=== PATIENT | female | born 1965 | race Caucasian/White ===

== ENCOUNTER → 2016-12-04 | Outpatient (REF) | payer OTHER | LOC: M SFHCWAGY 14:17 | PROVIDERS: ATTEND Nurse Practitioner Women's Health | DX: Z12.4 Encounter for screening for malignant neoplasm of cervix (principal) ==

== ENCOUNTER → 2016-12-04 | Outpatient (CLI) | payer OTHER ==
--- NOTE | 2016-12-04 15:02 | REPMRS ---
Patient History The patient states she had a clinical breast exam in 11/2016. Patient is postmenopausal. Family history of breast cancer in mother at age 38, breast cancer in 3 maternal aunts at age 50 or over, and breast cancer in maternal grandmother at age 50 or over. Benign stereotatic breast biopsy of the right breast, 2002. Reductions of both breasts, 1989. Digital Woman Screen Mammo: December 04, 2016 - Exam #: [id number] Bilateral CC and MLO view(s) were taken. Technologist: Jennifer Estes, Technologist Prior study comparison: August 29, 2015, digital woman screen mammo performed at [facility]. January 07, 2012, digital woman screen mammo performed at [facility]. FINDINGS: The breast tissue is heterogeneously dense. This may lower the sensitivity of mammography. There has been no change in the appearance of the mammogram from the prior studies. There is a moderate amount of residual fibroglandular tissue which is fairly symmetric. There is no interval development of dominant mass, areas of architectural distortion, or clustered microcalcification typical of malignancy. ASSESSMENT: BI-RADS/ACR category 1 mammogram. Negative. Recommendation Routine screening mammogram in 1 year (for women over age 40). This mammogram was interpreted with the aid of an FDA-approved computer-aided dectection system. Electronically Signed By: Franc Bermudez MD 12/04/16 5602
== END ==
LOC: M WHC 14:08
PROVIDERS: ATTEND Nurse Practitioner Women's Health
DX: Z12.31 Encounter for screening mammogram for malignant neoplasm of breast (principal)

== ENCOUNTER → 2018-01-12 | Outpatient (REF) | payer BC, OTHER | LOC: M SFHCWAGY 13:31 | DX: N95.0 Postmenopausal bleeding (principal); R93.8 Abnormal findings on diagnostic imaging of other specified body structures | CPT/HCPCS: 88304 ==

== ENCOUNTER → 2018-09-06 | Outpatient (CLI) | payer BC ==
--- NOTE | 2018-09-06 14:52 | REPMRS ---
Patient History The patient states she had a clinical breast exam in 08/2018. Patient is postmenopausal. Family history of breast cancer at age 38 in mother, breast cancer at age 50 or over in maternal grandmother, breast cancer at age 50 or over in maternal aunt, breast cancer under age 50 in maternal aunt, breast cancer at age 50 or over in maternal aunt. Benign stereotatic breast biopsy of the right breast, 2002. Reductions of both breasts, 1989. Taking estrogen for 1 year. 3D TOMOSYNTHESIS WAS PERFORMED. Digital Woman Screen Mammo: September 06, 2018 - Exam #: [id number] Bilateral CC and MLO view(s) were taken. Technologist: Moon Colindres, Technologist Prior study comparison: December 04, 2016, digital woman screen mammo performed at [facility]. August 29, 2015, digital woman screen mammo performed at [facility]. FINDINGS: The breast tissue is heterogeneously dense. This may lower the sensitivity of mammography. There has been no change in the appearance of the mammogram from the prior studies. There is a moderate amount of residual fibroglandular tissue which is fairly symmetric. There is no interval development of dominant mass, areas of architectural distortion, or clustered microcalcification typical of malignancy. Assessment: BI-RADS/ACR category 1 mammogram. Negative Mammogram. Recommendation Routine screening mammogram in 1 year (for women over age 40). This mammogram was interpreted with the aid of an FDA-approved computer-aided dectection system. THE LIFETIME RISK OF BREAST CANCER IS 21.2 %, THEREFORE SUPPLEMENTAL SCREENING MRI OF THE BREASTS IS RECOMMENDED. Electronically Signed By: Franc Bermudez MD 09/06/18 [id number]
== END ==
LOC: M WHC 13:31
PROVIDERS: ATTEND Nurse Practitioner Women's Health
DX: Z12.31 Encounter for screening mammogram for malignant neoplasm of breast (principal); Z80.3 Family history of malignant neoplasm of breast

== ENCOUNTER → 2020-06-20 | Outpatient (CLI) | payer BC ==
--- NOTE | 2020-06-20 11:41 | REPMRS ---
Patient History The patient states she had a clinical breast exam in 06/2020 Patient is postmenopausal. Family history of breast cancer at age 38 in mother, breast cancer at age 50 or over in maternal grandmother, breast cancer at age 50 or over in maternal aunt, breast cancer under age 50 in maternal aunt, breast cancer at age 50 or over in maternal aunt. Benign stereotatic breast biopsy of the right breast, 2002. Reductions of both breasts, 1989. Taking estrogen for 2 years. Taking progesterone for 2 years. Digital Woman Screen Mammo: June 20, 2020 - Exam #: [id number] Bilateral CC and MLO view(s) were taken. Technologist: Moon Colindres, Technologist Prior study comparison: September 06, 2018, bilateral digital woman screen mammo performed at [facility]. December 04, 2016, digital woman screen mammo performed at [facility]. August 29, 2015, digital woman screen mammo performed at [facility]. FINDINGS: There are scattered fibroglandular densities. The Volpara volumetric breast density category is:B. There has been no change in the appearance of the mammogram from the prior studies. There is a mild amount of scattered fibroglandular density which is fairly symmetric. There is no interval development of dominant mass, architectural distortion, or grouped microcalcification suggestive of malignancy. 3-D tomosynthesis shows no additional findings. Assessment: BI-RADS/ACR category 1 mammogram. Negative Mammogram. Recommendation Routine screening mammogram of both breasts in 1 year (for women over age 40). This patient's [facility] Lifetime Breast Cancer Risk is estimated at 20.1 %. This mammogram was interpreted with the aid of an FDA-approved computer-aided dectection system. Electronically Signed By: Tarik Cordero MD 06/20/20 [id number]
== END ==
LOC: M WHC 10:56
PROVIDERS: ATTEND Nurse Practitioner Women's Health
DX: Z12.31 Encounter for screening mammogram for malignant neoplasm of breast (principal); Z80.3 Family history of malignant neoplasm of breast; Z86.018 Personal history of other benign neoplasm

== ENCOUNTER → 2020-06-20 | Outpatient (REF) | payer BC | LOC: M SFHCWAGY 13:29 | PROVIDERS: ATTEND Nurse Practitioner Women's Health | DX: Z12.4 Encounter for screening for malignant neoplasm of cervix (principal); N88.8 Other specified noninflammatory disorders of cervix uteri | CPT/HCPCS: 87624; G0123 ==

== ENCOUNTER → 2020-12-03 | Outpatient (CLI) | payer BC ==
[~2020-12-03] MED LIST: PROHANCE 279.3MG/ML 15ML VIAL As Ordered ONE
--- NOTE | 2020-12-04 09:46 | REP ---
INDICATION: DENSE TISSUE, HIGH RISK, FAMILY HISTORY(MOTHER). COMPARISON: Comparison mammography June 20, 2020. TECHNIQUE: Three Ary MRI imaging was performed with a dedicated breast coil. Axial, coronal, and sagittal T1 and T2 weighted scans were obtained with and without fat saturation in the usual fashion. The study includes dynamically acquired post gadolinium-enhanced imaging with image subtraction. Maximum intensity projection and multi planar reformation imaging is included as well. This study is interpreted with the aid of [employer], an FDA approved computer aided detection (CAD) software program, on a dedicated breast MRI workstation. The gadolinium enhancement dose is 14 mL of intravenous ProHance. FINDINGS: There is a mild to moderate amount of fibroglandular tissue bilaterally corresponding with the mammographic pattern. There is mild background parenchymal enhancement. There is no evidence of axillary lymphadenopathy or significant breast cystic change. High-resolution pre and post-contrast T1 and T2 weighted scans show no suspicious morphologic abnormality in either breast. Dynamically acquired sequential postcontrast images show no suspicious area of enhancement and washout kinetics in either breast to suggest malignancy. Subtraction images show no additional abnormality. IMPRESSION: BI-RADS category 1 negative bilateral breast MRI findings. <Electronically signed by Tarik Cordero > 12/04/20 0997
== END ==
LOC: M RAD 15:56
PROVIDERS: ATTEND Nurse Practitioner Women's Health
DX: Z12.39 Encounter for other screening for malignant neoplasm of breast (principal); Z91.89 Other specified personal risk factors, not elsewhere classified; Z80.3 Family history of malignant neoplasm of breast; R92.2 Inconclusive mammogram
CPT/HCPCS: A9576; C8908

== ENCOUNTER → 2021-09-10 | Outpatient (CLI) | payer BC, OTHER ==
[~2021-09-10] MED LIST changes: +ISOVUE-300 61% 50ML VIAL As Ordered ONE; +LIDOCAINE 1% MDV 20ML VIAL As Ordered ONE; -PROHANCE 279.3MG/ML 15ML VIAL As Ordered ONE; +methylPREDNISolone SUSP 40MG/ML 1ML VIAL (DEPO MEDROL) As Ordered ONE
== END ==
LOC: M RADPRO 14:15
PROVIDERS: ATTEND Physician Assistant
DX: M19.072 Primary osteoarthritis, left ankle and foot (principal)
CPT/HCPCS: 20600; 77002; J1030; Q9967

== ENCOUNTER → 2021-11-05 | Outpatient (CLI) | payer BC, OTHER, SELFPAY | LOC: M WHC 08:37 | PROVIDERS: ATTEND Advanced Practice Midwife | DX: Z12.31 Encounter for screening mammogram for malignant neoplasm of breast (principal); R92.8 Other abnormal and inconclusive findings on diagnostic imaging of breast ==

== ENCOUNTER → 2021-11-07 | Outpatient (CLI) | payer OTHER | LOC: M RAD 12:12 | PROVIDERS: ATTEND Advanced Practice Midwife | DX: N95.0 Postmenopausal bleeding (principal) ==

== ENCOUNTER → 2021-11-18 | Outpatient (REF) | payer OTHER ==
[2021-11-18 15:47] LABS: MEAN CORPUSCULAR HEMOGLOBIN 29.7 pg (27.0-33.0); MEAN CORPUSCULAR HGB CONC 31.8 g/dl (32.0-36.5); MEAN CORPUSCULAR VOLUME 93.2 fl (80.0-96.0); PLATELET COUNT, AUTOMATED 263 10^3/uL (150-450); RED BLOOD COUNT 4.72 10^6/uL (4.00-5.40); WHITE BLOOD COUNT 8.1 10^3/uL (4.0-10.0)
[2021-11-18 18:53] LABS: ALBUMIN 4.1 GM/DL (3.2-5.2); ALT/SGPT 28 U/L (12-78); BILIRUBIN,TOTAL 0.7 MG/DL (0.2-1.0); BLOOD UREA NITROGEN 13 MG/DL (7-18); CALCIUM LEVEL 10.8 MG/DL (8.5-10.1); CARBON DIOXIDE LEVEL 29 MEQ/L (21-32); CHLORIDE LEVEL 109 MEQ/L (98-107); CREATININE FOR GFR 0.76 MG/DL (0.55-1.30); GLOMERULAR FILTRATION RATE > 60.0 (>51); GLUCOSE, FASTING 90 MG/DL (70-100); IRON (FE) 112 UG/DL (50-170); PERCENT SATURATION 45.2 % (13.2-45.0); SODIUM LEVEL 139 MEQ/L (136-145); TOTAL IRON BINDING CAPACITY 248 UG/DL (250-450); TOTAL PROTEIN 6.8 GM/DL (6.4-8.2)
[2021-11-19 00:24] LABS: VITAMIN B12 LEVEL 1558 PG/ML (247-911)
== END ==
LOC: M SFHCCLAY 10:32
PROVIDERS: ATTEND Family Medicine
DX: Z01.818 Encounter for other preprocedural examination (principal); Z98.84 Bariatric surgery status

== ENCOUNTER → 2021-11-19 | Outpatient (CLI) | payer OTHER | LOC: M WHC 13:07 | PROVIDERS: ATTEND Advanced Practice Midwife | DX: R92.8 Other abnormal and inconclusive findings on diagnostic imaging of breast (principal) | CPT/HCPCS: 77065; G0279 ==

== ENCOUNTER → 2022-02-13 | Outpatient (REF) | payer OTHER ==
[~2022-02-13] MED LIST changes: +ACET1TAB55 PO; +CVS5000S2 PO; +D31000CA4 PO; +GNP250TA9 PO; -ISOVUE-300 61% 50ML VIAL As Ordered ONE; -LIDOCAINE 1% MDV 20ML VIAL As Ordered ONE; +THERTAB52 PO; +VITATAB73 PO; -methylPREDNISolone SUSP 40MG/ML 1ML VIAL (DEPO MEDROL) As Ordered ONE
[2022-02-13 12:13] LABS: BASO # 0.1 10^3/uL (0.0-0.2); BASO % 1.4 % (0.0-1.0); EOS # 0.2 10^3/uL (0.0-0.5); EOS % 3.6 % (0.0-3.0); HEMATOCRIT 41.3 % (36.0-47.0); HEMOGLOBIN 13.1 g/dl (12.0-15.5); LYMPH # 1.9 10^3/uL (1.5-5.0); MEAN CORPUSCULAR HEMOGLOBIN 29.4 pg (27.0-33.0); MEAN CORPUSCULAR HGB CONC 31.7 g/dl (32.0-36.5); MEAN CORPUSCULAR VOLUME 92.8 fl (80.0-96.0); MONO # 0.5 10^3/uL (0.0-0.8); MONO % 8.1 % (2.0-8.0); NEUTROPHILS # 3.6 10^3/uL (1.5-8.5); NEUTROPHILS % 56.1 % (36.0-66.0); PLATELET COUNT, AUTOMATED 286 10^3/uL (150-450); RED BLOOD COUNT 4.45 10^6/uL (4.00-5.40); WHITE BLOOD COUNT 6.4 10^3/uL (4.0-10.0)
[2022-02-13 12:49] LABS: ALBUMIN 3.8 GM/DL (3.2-5.2); ALT/SGPT 32 U/L (12-78); BILIRUBIN,TOTAL 0.5 MG/DL (0.2-1.0); BLOOD UREA NITROGEN 11 MG/DL (7-18); CALCIUM LEVEL 11.3 MG/DL (8.5-10.1); CARBON DIOXIDE LEVEL 32 MEQ/L (21-32); CHLORIDE LEVEL 109 MEQ/L (98-107); CREATININE FOR GFR 0.76 MG/DL (0.55-1.30); GLOMERULAR FILTRATION RATE > 60.0 (>51); GLUCOSE, FASTING 94 MG/DL (70-100); POTASSIUM SERUM 4.7 MEQ/L (3.5-5.1); SODIUM LEVEL 143 MEQ/L (136-145); TOTAL PROTEIN 6.7 GM/DL (6.4-8.2)
[2022-02-13 13:52] LABS: PTH INTACT 88.5 PG/ML (18.5-88.0)
== END ==
LOC: M SFHCCLAY 09:07
PROVIDERS: ATTEND Family Medicine
DX: R35.89 Other polyuria (principal); K14.6 Glossodynia; Z98.84 Bariatric surgery status

== ENCOUNTER → 2022-02-18 | Outpatient (CLI) | payer OTHER | LOC: M EKG 16:39 | PROVIDERS: ATTEND Anesthesiology | DX: Z01.818 Encounter for other preprocedural examination (principal); E21.0 Primary hyperparathyroidism ==

== ENCOUNTER → 2022-02-18 | Outpatient (CLI) | payer OTHER | LOC: M LABSMTC 11:44 | PROVIDERS: ATTEND Anesthesiology | DX: Z01.812 Encounter for preprocedural laboratory examination (principal); Z11.52 Encounter for screening for COVID-19 ==

== ENCOUNTER 2022-02-20 09:28 | Day surgery (SDC) | payer OTHER ==
[~2022-02-20] VITALS: Ht 165.1 cm; Wt 74.4 kg
[~2022-02-20 09:28] MED LIST changes: +KETOROLAC 60MG 2ML VIAL As Ordered ONE; +LIDOCAINE 2% 100MG/5ML SDV (FOR ANES.) As Ordered ONE; +LR 1,000 ML IV SCH; +MIDAZOLAM INJ 2MG/2ML VIAL (J2250 PER 1MG) As Ordered ONE; +ONDANSETRON 4MG 2ML VIAL As Ordered ONE; +dexameTHASONE 4 MG/ML 1ML VIAL (J1100 PER 1MG) As Ordered ONE; +fentaNYL 100 MCG/2 ML INJECTION As Ordered ONE; +propofoL 200 MG/20 ML VIAL As Ordered ONE
[2022-02-20] MEDS ORDERED: LR 1,000 ML IV SCH ×2 (09:50→12:30)
[2022-02-20 10:04] LABS: HEMATOCRIT 42.8 % (36.0-47.0); HEMOGLOBIN 13.6 g/dl (12.0-15.5); MEAN CORPUSCULAR HEMOGLOBIN 29.2 pg (27.0-33.0); MEAN CORPUSCULAR HGB CONC 31.8 g/dl (32.0-36.5); PLATELET COUNT, AUTOMATED 288 10^3/uL (150-450); RED BLOOD COUNT 4.65 10^6/uL (4.00-5.40); WHITE BLOOD COUNT 6.4 10^3/uL (4.0-10.0)
[2022-02-20] MEDS ORDERED: LIDOCAINE 1% SDV 30ML VIAL As Ordered ONE (10:51)
[2022-02-20] MEDS ORDERED: SEVOFLURANE INHAL SOLN 250 ML BTL As Ordered ONE (10:54)
[2022-02-20] MEDS ORDERED: ePHEDrine SULFATE 25 MG/5 ML(5MG/ML) SYRINGE As Ordered ONE (11:28)
[2022-02-20] MEDS ORDERED: MORPHINE 2 MG/ML 1ML VIAL IV PRN (11:55)
[2022-02-20] MEDS ORDERED: fentaNYL 100 MCG/2 ML INJECTION IV PRN (11:55)
[2022-02-20] MEDS ORDERED: oxyCODONE 5MG TAB PO PRN (11:55)
[2022-02-20] MEDS ORDERED: ONDANSETRON 4MG 2ML VIAL IV PRN ×2 (11:55→12:30)
[2022-02-20] MEDS ORDERED: ACETAMINOPHEN 500 MG TAB PO PRN (12:30)
[2022-02-20] MEDS ORDERED: HYDROmorphone 2 MG TAB PO PRN (12:30)
[2022-02-20] MEDS ORDERED: IBUPROFEN 600MG TAB PO PRN (12:30)
[2022-02-20 12:51] VITALS: BP 144/74
== END 2022-02-20 13:21 | disposition home or self-care (01) ==
LOC: M SDC 09:28
PROVIDERS: ATTEND Obstetrics & Gynecology
DX: N85.8 Other specified noninflammatory disorders of uterus (principal); N95.0 Postmenopausal bleeding; Z98.890 Other specified postprocedural states; Z98.84 Bariatric surgery status; Z79.899 Other long term (current) drug therapy; Z88.0 Allergy status to penicillin; Z88.1 Allergy status to other antibiotic agents; Z88.8 Allergy status to other drugs, medicaments and biological substances
CPT/HCPCS: 36415; 58558; 85027; 86850; 86900; 86901; 88305; J1100; J1885; J2250; J2405; J3010

== ENCOUNTER → 2022-05-05 | Outpatient (CLI) | payer OTHER ==
[~2022-05-05] MED LIST changes: -KETOROLAC 60MG 2ML VIAL As Ordered ONE; -LIDOCAINE 2% 100MG/5ML SDV (FOR ANES.) As Ordered ONE; -LR 1,000 ML IV SCH; -MIDAZOLAM INJ 2MG/2ML VIAL (J2250 PER 1MG) As Ordered ONE; -ONDANSETRON 4MG 2ML VIAL As Ordered ONE; +PROHANCE 279.3MG/ML 15ML VIAL As Ordered ONE; -dexameTHASONE 4 MG/ML 1ML VIAL (J1100 PER 1MG) As Ordered ONE; -fentaNYL 100 MCG/2 ML INJECTION As Ordered ONE; -propofoL 200 MG/20 ML VIAL As Ordered ONE
== END ==
LOC: M RAD 14:07
PROVIDERS: ATTEND Advanced Practice Midwife
DX: Z51.89 Encounter for other specified aftercare (principal); Z12.31 Encounter for screening mammogram for malignant neoplasm of breast
CPT/HCPCS: 77049; A9576

== ENCOUNTER → 2022-05-08 | Outpatient (CLI) | payer OTHER ==
[~2022-05-08] MED LIST changes: -PROHANCE 279.3MG/ML 15ML VIAL As Ordered ONE
== END ==
LOC: M CLY 14:44
PROVIDERS: ATTEND Family Medicine
DX: M47.812 Spondylosis without myelopathy or radiculopathy, cervical region (principal); M25.551 Pain in right hip

== ENCOUNTER → 2022-05-08 | Outpatient (REF) | payer OTHER ==
[2022-05-08 17:43] LABS: BASO # 0.1 10^3/uL (0.0-0.2); BASO % 1.1 % (0.0-1.0); EOS # 0.2 10^3/uL (0.0-0.5); EOS % 2.3 % (0.0-3.0); HEMOGLOBIN 13.3 g/dl (12.0-15.5); LYMPH % 30.1 % (24.0-44.0); MEAN CORPUSCULAR HEMOGLOBIN 28.8 pg (27.0-33.0); MEAN CORPUSCULAR HGB CONC 30.9 g/dl (32.0-36.5); MEAN CORPUSCULAR VOLUME 93.1 fl (80.0-96.0); MONO # 0.6 10^3/uL (0.0-0.8); MONO % 9.4 % (2.0-8.0); NEUTROPHILS # 3.8 10^3/uL (1.5-8.5); NEUTROPHILS % 56.6 % (36.0-66.0); PLATELET COUNT, AUTOMATED 276 10^3/uL (150-450); RED BLOOD COUNT 4.62 10^6/uL (4.00-5.40); WHITE BLOOD COUNT 6.6 10^3/uL (4.0-10.0)
[2022-05-08 17:58] LABS: ERYTHROCYTE SEDIMENTATION RATE 10 mm/hr (0-30)
[2022-05-08 18:16] LABS: ALBUMIN 4.1 G/DL (3.2-5.2); ALKALINE PHOSPHATASE 89 U/L (46-116); ALT/SGPT 30 U/L (7.0-40); AST/SGOT 35 U/L (<34); BILIRUBIN,TOTAL 0.4 MG/DL (0.3-1.2); BLOOD UREA NITROGEN 14 MG/DL (9-23); CALCIUM LEVEL 11.1 MG/DL (8.5-10.1); CARBON DIOXIDE LEVEL 26 MMOL/L (20-31); CHLORIDE LEVEL 107 MMOL/L (98-107); CREATININE FOR GFR 0.68 MG/DL (0.55-1.30); GLOMERULAR FILTRATION RATE > 60.0 (>51); GLUCOSE, FASTING 89 MG/DL (60-100); POTASSIUM SERUM 4.4 MMOL/L (3.5-5.1); SODIUM LEVEL 141 MMOL/L (136-145); TOTAL PROTEIN 6.5 G/DL (5.7-8.2)
[2022-05-08 18:18] LABS: RHEUMATOID FACTOR QUANT 5.8 IU/ML (<14); THYROID STIMULATING HORMONE 1.223 uIU/ML (0.55-4.78)
[2022-05-18 18:09] LABS: ANA (HEP2) Negative (.); CYCLIC CITRULLINATED PEPTIDE 2 units (0-19); HLA-B27 Negative (.)
== END ==
LOC: M SFHCCLAY 14:48
PROVIDERS: ATTEND Family Medicine
DX: M54.2 Cervicalgia (principal); M25.551 Pain in right hip; L92.0 Granuloma annulare

== ENCOUNTER → 2022-10-16 | Outpatient (CLI) | payer OTHER | LOC: M CLY 15:51 | PROVIDERS: ATTEND Family Medicine | DX: M25.561 Pain in right knee (principal) ==

== ENCOUNTER → 2022-10-19 | Outpatient (REF) | payer OTHER ==
[2022-10-19 11:38] LABS: ALKALINE PHOSPHATASE 83 U/L (46-116); ALT/SGPT 23 U/L (7.0-40); AST/SGOT 25 U/L (<34); BILIRUBIN,TOTAL 0.6 MG/DL (0.3-1.2); BLOOD UREA NITROGEN 12 MG/DL (9-23); CARBON DIOXIDE LEVEL 30 MMOL/L (20-31); CHLORIDE LEVEL 108 MMOL/L (98-107); CREATININE FOR GFR 0.76 MG/DL (0.55-1.30); GLOMERULAR FILTRATION RATE > 60.0 (>51); GLUCOSE, FASTING 89 MG/DL (60-100); POTASSIUM SERUM 4.6 MMOL/L (3.5-5.1); PTH INTACT 121.4 PG/ML (18.5-88.0); SODIUM LEVEL 142 MMOL/L (136-145); TOTAL PROTEIN 6.2 G/DL (5.7-8.2)
[2022-10-19 11:41] LABS: VITAMIN B12 LEVEL 1391 PG/ML (211-911)
== END ==
LOC: M SFHCCLAY 06:51
PROVIDERS: ATTEND Family Medicine
DX: M62.89 Other specified disorders of muscle (principal); M54.2 Cervicalgia; Z98.84 Bariatric surgery status

== ENCOUNTER → 2022-11-19 | Outpatient (CLI) | payer OTHER | LOC: M WHC 10:37 | PROVIDERS: ATTEND Family Medicine | DX: Z53.9 Procedure and treatment not carried out, unspecified reason (principal) ==

== ENCOUNTER → 2022-11-19 | Outpatient (CLI) | payer OTHER ==
[2022-11-19 15:36] LABS: CALCIUM LEVEL 10.8 MG/DL (8.5-10.1); PHOSPHORUS LEVEL 2.9 MG/DL (2.5-4.9)
[2022-11-19 15:40] LABS: TOTAL 25(OH) VITAMIN D 33.7 NG/ML (20.0-100.0)
== END ==
LOC: M LAB 13:51
PROVIDERS: ATTEND Internal Medicine Endocrinology, Diabetes & Metabolism
DX: E83.52 Hypercalcemia (principal)

== ENCOUNTER → 2022-12-02 | Outpatient (CLI) | payer OTHER | LOC: M RAD 09:42 | PROVIDERS: ATTEND Family Medicine | DX: R93.6 Abnormal findings on diagnostic imaging of limbs (principal); Z96.651 Presence of right artificial knee joint | CPT/HCPCS: 78315; A9503 ==

== ENCOUNTER → 2022-12-28 | Outpatient (CLI) | payer OTHER | LOC: M PLALAB 10:29 | PROVIDERS: ATTEND Internal Medicine Endocrinology, Diabetes & Metabolism | DX: E83.52 Hypercalcemia (principal) ==

== ENCOUNTER → 2022-12-31 | Outpatient (REF) | payer OTHER ==
[2022-12-31 11:51] LABS: BASO # 0.1 10^3/uL (0.0-0.2); BASO % 1.2 % (0.0-1.0); EOS # 0.2 10^3/uL (0.0-0.5); EOS % 2.8 % (0.0-3.0); HEMATOCRIT 42.7 % (36.0-47.0); HEMOGLOBIN 13.4 g/dl (12.0-15.5); LYMPH # 1.7 10^3/uL (1.5-5.0); LYMPH % 29.2 % (24.0-44.0); MEAN CORPUSCULAR HEMOGLOBIN 29.2 pg (27.0-33.0); MEAN CORPUSCULAR HGB CONC 31.4 g/dl (32.0-36.5); MONO # 0.4 10^3/uL (0.0-0.8); MONO % 7.4 % (2.0-8.0); NEUTROPHILS # 3.4 10^3/uL (1.5-8.5); NEUTROPHILS % 58.9 % (36.0-66.0); PLATELET COUNT, AUTOMATED 263 10^3/uL (150-450); RED BLOOD COUNT 4.59 10^6/uL (4.00-5.40); WHITE BLOOD COUNT 5.8 10^3/uL (4.0-10.0)
[2022-12-31 12:16] LABS: ALKALINE PHOSPHATASE 87 U/L (46-116); ALT/SGPT 22 U/L (7.0-40); AST/SGOT 19 U/L (<34); BILIRUBIN,TOTAL 0.8 MG/DL (0.3-1.2); BLOOD UREA NITROGEN 11 MG/DL (9-23); CALCIUM LEVEL 11.1 MG/DL (8.5-10.1); CARBON DIOXIDE LEVEL 30 MMOL/L (20-31); CHLORIDE LEVEL 107 MMOL/L (98-107); CREATININE FOR GFR 0.74 MG/DL (0.55-1.30); GLOMERULAR FILTRATION RATE > 60.0 (>51); GLUCOSE, FASTING 85 MG/DL (60-100); POTASSIUM SERUM 4.5 MMOL/L (3.5-5.1); SODIUM LEVEL 142 MMOL/L (136-145); TOTAL PROTEIN 6.4 G/DL (5.7-8.2)
== END ==
LOC: M LABDRAWC 11:28
PROVIDERS: ATTEND Orthopaedic Surgery
DX: Z01.818 Encounter for other preprocedural examination (principal)

== ENCOUNTER → 2023-01-22 | Outpatient (CLI) | payer OTHER | LOC: M RAD 12:54 | PROVIDERS: ATTEND Internal Medicine Endocrinology, Diabetes & Metabolism | DX: E83.52 Hypercalcemia (principal) | CPT/HCPCS: 78070; 78803; A9500 ==

== ENCOUNTER → 2023-05-26 | Outpatient (REF) | payer OTHER ==
[2023-05-26 16:44] LABS: BLOOD UREA NITROGEN 14 MG/DL (9-23); CALCIUM LEVEL 11.1 MG/DL (8.5-10.1); CARBON DIOXIDE LEVEL 31 MMOL/L (20-31); CHLORIDE LEVEL 106 MMOL/L (98-107); CREATININE FOR GFR 0.63 MG/DL (0.55-1.30); GLOMERULAR FILTRATION RATE > 60.0 (>51); GLUCOSE, FASTING 95 MG/DL (60-100); POTASSIUM SERUM 5.1 MMOL/L (3.5-5.1); PTH INTACT 152.8 PG/ML (18.5-88.0); SODIUM LEVEL 140 MMOL/L (136-145)
[2023-05-26 16:48] LABS: THYROID STIMULATING HORMONE 1.123 uIU/ML (0.55-4.78)
[2023-05-26 16:49] LABS: FREE T4 1.12 NG/DL (0.89-1.76)
== END ==
LOC: M SFHCCLAY 11:44
PROVIDERS: ATTEND Family Medicine
DX: E21.3 Hyperparathyroidism, unspecified (principal); L92.0 Granuloma annulare; Z96.651 Presence of right artificial knee joint

== ENCOUNTER → 2023-09-13 | Outpatient (REF) | payer OTHER ==
[2023-09-13 17:33] LABS: ALBUMIN 3.9 G/DL (3.2-5.2); ALKALINE PHOSPHATASE 96 U/L (46-116); ALT/SGPT 36 U/L (7.0-40); AST/SGOT 28 U/L (<34); BILIRUBIN,TOTAL 0.4 MG/DL (0.3-1.2); BLOOD UREA NITROGEN 13 MG/DL (9-23); CALCIUM LEVEL 9.5 MG/DL (8.5-10.1); CARBON DIOXIDE LEVEL 32 MMOL/L (20-31); CHLORIDE LEVEL 105 MMOL/L (98-107); GLOMERULAR FILTRATION RATE > 60.0 (>51); GLUCOSE, FASTING 108 MG/DL (60-100); POTASSIUM SERUM 4.4 MMOL/L (3.5-5.1); PTH INTACT 107.9 PG/ML (18.5-88.0); SODIUM LEVEL 142 MMOL/L (136-145); TOTAL PROTEIN 6.8 G/DL (5.7-8.2)
== END ==
LOC: M LABDRAWC 16:41
PROVIDERS: ATTEND Surgery
DX: E21.0 Primary hyperparathyroidism (principal)

== ENCOUNTER 2023-12-13 11:31 | Emergency (ER) | payer OTHER ==
[~2023-12-13] VITALS: Ht 165.1 cm; Wt 82.3 kg
[2023-12-13] MEDS ORDERED: DULO1CAP6 (11:50)
[2023-12-13] MEDS ORDERED: ISOVUE-370 76% 100ML VIAL As Ordered ONE (13:23)
[2023-12-13 13:37] LABS: BASO # 0.1 10^3/uL (0.0-0.2); EOS # 0.1 10^3/uL (0.0-0.5); EOS % 1.4 % (0.0-3.0); HEMATOCRIT 39.3 % (36.0-47.0); HEMOGLOBIN 12.9 g/dl (12.0-15.5); LYMPH # 2.3 10^3/uL (1.5-5.0); LYMPH % 27.9 % (24.0-44.0); MEAN CORPUSCULAR HEMOGLOBIN 29.7 pg (27.0-33.0); MEAN CORPUSCULAR HGB CONC 32.8 g/dl (32.0-36.5); MEAN CORPUSCULAR VOLUME 90.6 fl (80.0-96.0); MONO # 0.6 10^3/uL (0.0-0.8); MONO % 6.7 % (2.0-8.0); NEUTROPHILS # 5.2 10^3/uL (1.5-8.5); NEUTROPHILS % 62.5 % (36.0-66.0); PLATELET COUNT, AUTOMATED 271 10^3/uL (150-450); RED BLOOD COUNT 4.34 10^6/uL (4.00-5.40); WHITE BLOOD COUNT 8.4 10^3/uL (4.0-10.0)
[2023-12-13] MEDS: NS 500 ML IV ONE (13:57)
[2023-12-13 14:09] LABS: BLOOD UREA NITROGEN 14 MG/DL (9-23); CARBON DIOXIDE LEVEL 27 MMOL/L (20-31); CHLORIDE LEVEL 107 MMOL/L (98-107); CREATININE FOR GFR 0.54 MG/DL (0.55-1.30); GLOMERULAR FILTRATION RATE > 60.0 (>51); GLUCOSE, FASTING 82 MG/DL (60-100); POTASSIUM SERUM 4.4 MMOL/L (3.5-5.1); SODIUM LEVEL 140 MMOL/L (136-145)
[2023-12-13 14:14] LABS: INR 1.13; PARTIAL THROMBOPLASTIN TIME 30.4 SECONDS (24.8-34.2); PROTHROMBIN TIME 14.1 SECONDS (12.5-14.5)
[2023-12-13] MEDS ORDERED: MECL-86 PO (19:00)
[2023-12-13 19:21] VITALS: BP 154/74; TEMP 98.1; O2SAT 97
== END 2023-12-13 19:26 | disposition home or self-care (01) ==
LOC: M ED 11:31
DX: R42 Dizziness and giddiness (principal); Z79.899 Other long term (current) drug therapy; Z88.0 Allergy status to penicillin; Z88.1 Allergy status to other antibiotic agents; Z88.8 Allergy status to other drugs, medicaments and biological substances
CPT/HCPCS: 70450; 70496; 70498; 70551; 71045; 80047; 80048; 85025; 85610; 85730; 93005; 93041; 94760; 96360; 99285; Q9967

== ENCOUNTER → 2023-12-25 | Outpatient (CLI) | payer OTHER ==
[~2023-12-25] MED LIST changes: +DULO1CAP6; +MECL-86 PO
== END ==
LOC: M RAD 08:29
PROVIDERS: ATTEND Neurological Surgery
DX: G93.5 Compression of brain (principal); I67.89 Other cerebrovascular disease

== ENCOUNTER → 2023-12-31 | Outpatient (CLI) | payer OTHER | LOC: M PLAIMG 08:26 | PROVIDERS: ATTEND Family Medicine | DX: R94.31 Abnormal electrocardiogram [ECG] [EKG] (principal); I36.1 Nonrheumatic tricuspid (valve) insufficiency; I37.1 Nonrheumatic pulmonary valve insufficiency ==

== ENCOUNTER → 2024-03-13 | Outpatient (REF) | payer OTHER ==
[2024-03-13 12:41] LABS: TOTAL 25(OH) VITAMIN D 38.7 NG/ML (20.0-100.0)
[2024-03-13 12:45] LABS: ALBUMIN 3.8 G/DL (3.2-5.2); ALKALINE PHOSPHATASE 87 U/L (35-104); ALT/SGPT 23 U/L (7.0-40); AST/SGOT 18 U/L (<34); BILIRUBIN,TOTAL 0.5 MG/DL (0.3-1.2); BLOOD UREA NITROGEN 14 MG/DL (9-23); CALCIUM LEVEL 10.1 MG/DL (8.5-10.1); CARBON DIOXIDE LEVEL 28 MMOL/L (20-31); CHLORIDE LEVEL 107 MMOL/L (98-107); CREATININE FOR GFR 0.71 MG/DL (0.55-1.30); GLOMERULAR FILTRATION RATE > 60.0 (>51); GLUCOSE, FASTING 63 MG/DL (60-100); POTASSIUM SERUM 4.3 MMOL/L (3.5-5.1); PTH INTACT 36.6 PG/ML (18.5-88.0); SODIUM LEVEL 144 MMOL/L (136-145); TOTAL PROTEIN 6.7 G/DL (5.7-8.2)
== END ==
LOC: M LABDRAWC 11:33
PROVIDERS: ATTEND Surgery
DX: E21.0 Primary hyperparathyroidism (principal)

== ENCOUNTER → 2024-05-19 | Outpatient (CLI) | payer OTHER | LOC: M WHC 10:31 | PROVIDERS: ATTEND Obstetrics & Gynecology | DX: Z12.31 Encounter for screening mammogram for malignant neoplasm of breast (principal) ==

== ENCOUNTER → 2024-05-26 | Outpatient (CLI) | payer OTHER | LOC: M WHC 10:28 | PROVIDERS: ATTEND Obstetrics & Gynecology | DX: Z13.820 Encounter for screening for osteoporosis (principal); M85.851 Other specified disorders of bone density and structure, right thigh; M85.852 Other specified disorders of bone density and structure, left thigh ==

== ENCOUNTER → 2024-06-23 | Outpatient (CLI) | payer OTHER | LOC: M PLAIMG 10:50 | PROVIDERS: ATTEND Neurological Surgery | DX: M47.812 Spondylosis without myelopathy or radiculopathy, cervical region (principal) ==

== ENCOUNTER → 2025-04-16 | Outpatient (REF) | payer OTHER ==
[2025-04-16 12:37] LABS: ALT/SGPT 23 U/L (7.0-40); AST/SGOT 24 U/L (<34); CALCIUM LEVEL 9.0 MG/DL (8.3-10.6); CARBON DIOXIDE LEVEL 30 MMOL/L (20-31); CHLORIDE LEVEL 107 MMOL/L (98-107); CHOLESTEROL LEVEL 157 MG/DL (<200); CHOLESTEROL RISK RATIO 2.04 (<5); CREATININE FOR GFR 0.65 MG/DL (0.55-1.30); GLOMERULAR FILTRATION RATE > 90.0 (>45); IRON (FE) 88 UG/DL (50-170); LDL CHOLESTEROL 66.6 MG/DL (<100); NON-HDL-C 80.4 MG/DL; PERCENT SATURATION 32.4 % (13.2-45.0); POTASSIUM SERUM 4.2 MMOL/L (3.5-5.1); PTH INTACT 55.0 PG/ML (18.5-88.0); SODIUM LEVEL 146 MMOL/L (136-145); TRIGLYCERIDES LEVEL 69 MG/DL (<150)
[2025-04-16 12:38] LABS: VITAMIN B12 LEVEL 1130 PG/ML (211-911)
[2025-04-16 13:10] LABS: ESTIMATED AVERAGE GLUCOSE 100.0 MG/DL (60-110)
== END ==
LOC: M SFHCCLAY 07:42
PROVIDERS: ATTEND Physician Assistant
DX: Z98.84 Bariatric surgery status (principal); E21.3 Hyperparathyroidism, unspecified; M47.812 Spondylosis without myelopathy or radiculopathy, cervical region; Z96.659 Presence of unspecified artificial knee joint; M48.02 Spinal stenosis, cervical region; G89.29 Other chronic pain; J40 Bronchitis, not specified as acute or chronic; B00.9 Herpesviral infection, unspecified; Z12.11 Encounter for screening for malignant neoplasm of colon